=== PATIENT | male | born 1975 | race African-American/Black ===

== ENCOUNTER 2020-03-04 17:24 | Observation (INO) ==
[2020-03-04] MEDS ORDERED: NITROGLYCERIN SL 0.4 MG/TAB TAB SL PRN ×2 (17:50→21:33)
[2020-03-04] MEDS ORDERED: ASPIRIN CHEW 324 MG PO STA (17:50)
[2020-03-04] MEDS ORDERED: SODIUM CHLORIDE 0.9% 1000ML 1,000 ML IV SCH (18:00)
--- NOTE | 2020-03-04 18:02 | Emergency Department Note ---
History of Present Illness General Chief Complaint: Chest Pain Stated Complaint: chest pain Time Seen by Provider: 03/04/20 17:33 History of Present Illness Provider Complaint: chest pain Time: 12:00 Duration: intermittent Onset: during exertion (washing dishes) Pain Location: substernal, left chest and right chest Pain Radiation: none Severity: mild Maximum Pain Intensity: 0 Current Pain Intensity: 2 Quality: + tightness Relieved By: + rest and + other (deep breaths and relaxing) Exacerbated By: + nothing Context: no recent illness, no recent surgery, no recent immobilization, no recent travel, no trauma/injury, no new medications and no history of DVT/PE Associated symptoms: + dyspnea and + palpitations; no nausea, no vomiting, no diaphoresis, no syncope, no fever, no cough and no leg swelling Treatments prior to arrival: none Home Medications Medication Instructions Recorded Confirmed Type ascorbic acid (vitamin C) [Vitamin 1,000 mg PO DAILY 03/04/20 03/04/20 History C] lactobacillus combination no.4 0 mmu cells PO DAILY 03/04/20 03/04/20 History [Probiotic] Allergies Allergy/AdvReac Type Severity Reaction Status Date / Time No Known Allergies Allergy Verified 03/04/20 18:37 Past Med/Surg History Medical History (Updated 03/04/20 @ 20:57 by Kevin Jimenez) HLD (hyperlipidemia) borderline HTN (hypertension) hx of HTN off meds for last 5 yrs SABA (obstructive sleep apnea) Surgical History (Updated 03/04/20 @ 17:58 by Kevin Jimenez) No pertinent past surgical history Family History (Updated 03/04/20 @ 20:39 by Karla Ramesh DO) Father Myocardial infarction At age 35 and again at age 38. Possibly related to drug use Other Diabetes Dyslipidemia Hypertension Social History Smoking Status: Never smoker Feels Safe at Home: Yes Review of Systems A total of 10 systems reviewed and were otherwise negative Physical Exam Vital Signs Vital Signs - 24 hr 03/04/20 17:26 03/04/20 18:16 03/04/20 19:21 Temperature 36.8 C Temperature Source Temporal Artery Scan Pulse Rate 76 Pulse Rate [Apical] 58 L Pulse Rhythm [Apical] Regular Pulse Strength [Apical] Normal Respiratory Rate 20 18 Respiratory Effort / Characteristics Non-Labored Spontaneous Respiratory Depth Normal Respiratory Pattern Regular Blood Pressure 170/90 H Blood Pressure [Right Arm] 158/86 H Blood Pressure Mean 116 Blood Pressure Mean [Right Arm] 110 Blood Pressure Position [Right Arm] Sitting Pulse Oximetry 99 99 99 Oxygen Delivery Method Room Air Room Air Room Air Sepsis Recent Fever Within 48 Hours No Sepsis New/Unexplained Change in Mental Status N/A Sepsis Action Taken by Nursing No Action Required Physical Exam GENERAL: He is oriented to person, place, and time. He appears well-developed and well-nourished. He does not appear distressed. HENT: Exam performed. - Head: Normocephalic and atraumatic. - Right Ear: External ear normal. No mastoid tenderness. - Left Ear: External ear normal. No mastoid tenderness. - Mouth/Throat: The oropharynx is clear and moist. No trismus in the jaw. No dental abscesses or uvula swelling. No oropharyngeal exudate or tonsillar abscesses. EYES: Conjunctivae and EOM are normal. Pupils are equal, round, and reactive to light. Right eye exhibits no discharge. Left eye exhibits no discharge. No scleral icterus. NECK: Normal range of motion. Neck supple. No JVD present. No spinous process tenderness present. No carotid bruit present. No rigidity. No tracheal deviation and normal range of motion present. No Brudzinski's sign and no Kernig's sign noted. CV: Normal rate, regular rhythm, heart murmur present and intact distal pulses. There is no peripheral edema. Palpable radial pulses bue. PULM/CHEST: Effort normal and breath sounds normal. No respiratory distress. No stridor. He has no wheezes. He has no rales. - Chest Wall: He exhibits no tenderness. ABD: The abdomen is soft. Bowel sounds are normal. He has no distension. No mass is present. There is no tenderness. There is no rebound, no guarding, no Hogan's sign and no tenderness at McBurney's point. Rovsig negative. MUSC/SKEL: Normal range of motion. There is no peripheral edema, tenderness or deformity. LYMPH: No cervical adenopathy. NEURO: He is alert and oriented to person, place, and time. He has normal st rength. No cranial nerve deficit or sensory deficit. Coordination and gait normal. GCS eye subscore is 4. GCS verbal subscore is 5. GCS motor subscore is 6. Cerebellar tests wnl. SKIN: Skin is warm and dry. He is not diaphoretic. PSYCH: He has a normal mood and affect. Behavior is normal. Judgment and thought content normal. Course Course 1732: The patient was evaluated in room A10. A complete history and physical exam was performed. 1943: Vital signs stable. Labs and imaging within normal limits. Given the patient's EKG findings of T wave inversions in leads II, III and aVF and that the patient is -[place], strong family history of heart disease, borderline hyperlipidemia, and history of hypertension, the patient will be admitted for chest pain rule out ACS. Dr. Ramesh [facility] hospitalist was notified and will evaluate the patient. Administered Medications Nitroglycerin (Nitroglycerin Sl 0.4 Mg/Tab Tab) 0.4 mg SL UD PRN PRN Reason: Chest Pain Stop: 04/03/20 17:49 Last Admin: 03/04/20 17:55 Dose: 0.4 mg Documented by: [id number] Discontinued Medications Aspirin (Aspirin Chew 324 Mg) 324 mg PO NOW STA Stop: 03/04/20 17:51 Last Admin: 03/04/20 17:56 Dose: 324 mg Documented by: [id number] Sodium Chloride (Nss 1000ml) 1,000 mls @ 999 mls/hr IV .Q1H1M FABRICE Stop: 03/04/20 19:00 Last Infusion: 03/04/20 19:11 Dose: 0 mls/hr Documented by: [id number] Admin: 03/04/20 18:10 Dose: 999 mls/hr Documented by: [id number] Medical Decision Making Laboratory Data Result diagrams: 03/04/20 18:11 03/04/20 18:11 Labs: Lab Results 03/04/20 03/04/20 03/04/20 Range/Units 18:11 18:11 18:11 WBC 3.15 L (4.8-10.8) K/uL RBC 5.19 (4.7-6.1) M/uL Hgb 15.5 (14.0-18.0) g/dL Hct 44.2 (42-52) % MCV 85.2 (80-100) fL MCH 29.9 (25-34) pg MCHC 35.1 (32-36) g/dL RDW Std Deviation 37.9 (36.4-46.3) fL RDW Coeff of Gisele 12.1 (11.5-14.5) % Plt Count 199 (130-400) K/uL MPV 10.6 H (7.4-10.4) fL Immature Gran % (Auto) 0.0 % Neut % (Auto) 51.5 % Lymph % (Auto) 34.9 % [place] % (Auto) 10.8 % Eos % (Auto) 2.2 % Baso % (Auto) 0.6 % Neut # (Auto) 1.62 (1.4-6.5) K/uL Lymph # (Auto) 1.10 L (1.2-3.4) K/uL [place] # (Auto) 0.34 (0.11-0.59) K/uL Eos # (Auto) 0.07 (0-0.5) K/uL Baso # (Auto) 0.02 (0-0.2) K/uL Immature Gran # (Auto) 0.00 (0.00-0.02) K/uL PT 11.2 (9.0-12.0) Seconds INR 1.1 (0.9-1.1) APTT 26.3 (21.0-31.0) Seconds PTT Ratio 0.9 D-Dimer < 190 (0-500) ug/L FEU Sodium 138 (136-145) mmol/L Potassium 3.7 (3.5-5.1) mmol/L Chloride 105 (98-107) mmol/L Carbon Dioxide 29 (21-32) mmol/L Anion Gap 4.0 (3-11) BUN 17 (7-18) mg/dl Creatinine 1.39 (0.6-1.4) mg/dl Est Cr Clr Drug Dosing 85.9 ml/min Est GFR ( Amer) 70.4 Est GFR (Non-Af Amer) 60.8 BUN/Creatinine Ratio 12.6 (10-20) Glucose 107 H (70-99) mg/dl Calcium 9.5 (8.5-10.1) mg/dl Troponin I < 0.015 (0-0.045) ng/ml Lipase 133 (73-393) U/L SARS-CoV-2 Ag (Rapid) (Negative) 03/04/20 Range/Units Unknown WBC (4.8-10.8) K/uL RBC (4.7-6.1) M/uL Hgb (14.0-18.0) g/dL Hct (42-52) % MCV (80-100) fL MCH (25-34) pg MCHC (32-36) g/dL RDW Std Deviation (36.4-46.3) fL RDW Coeff of Gisele (11.5-14.5) % Plt Count (130-400) K/uL MPV (7.4-10.4) fL Immature Gran % (Auto) % Neut % (Auto) % Lymph % (Auto) % [place] % (Auto) % Eos % (Auto) % Baso % (Auto) % Neut # (Auto) (1.4-6.5) K/uL Lymph # (Auto) (1.2-3.4) K/uL [place] # (Auto) (0.11-0.59) K/uL Eos # (Auto) (0-0.5) K/uL Baso # (Auto) (0-0.2) K/uL Immature Gran # (Auto) (0.00-0.02) K/uL PT (9.0-12.0) Seconds INR (0.9-1.1) APTT (21.0-31.0) Seconds PTT Ratio D-Dimer (0-500) ug/L FEU Sodium (136-145) mmol/L Potassium (3.5-5.1) mmol/L Chloride (98-107) mmol/L Carbon Dioxide (21-32) mmol/L Anion Gap (3-11) BUN (7-18) mg/dl Creatinine (0.6-1.4) mg/dl Est Cr Clr Drug Dosing ml/min Est GFR ( Amer) Est GFR (Non-Af Amer) BUN/Creatinine Ratio (10-20) Glucose (70-99) mg/dl Calcium (8.5-10.1) mg/dl Troponin I (0-0.045) ng/ml Lipase (73-393) U/L SARS-CoV-2 Ag (Rapid) Negative (Negative) Imaging Data Chest x-ray: Radiologist's impression: XR chest 2V PA/lateral HISTORY: Atypical Chest Pain COMPARISON: None. FINDINGS: The lungs are clear. Cardiac silhouette is normal in size. No pleural effusions. No pneumothorax. IMPRESSION: No acute process. ACT 112: Negative or not required by law. Electronically signed by: Evan Goff M.D. 03/04/2020 7:35 PM Dictated: 03/04/201928 Transcribed: 03/04/201928 ECG Data Indication: chest pain Rate (beats per minute): 58 Rhythm: normal sinus Findings: + T-wave inversion (Leads II, III and aVF); no ST depression, no ST elevation and no prolonged QT Additional Comments: MN QRS and QTc intervals within normal limits MDM Narrative Vital signs stable. Labs and imaging within normal limits. Given the patien t's EKG findings of T wave inversions in leads II, III and aVF and that the patient is -[place], strong family history of heart disease, borderline hyperlipidemia, and history of hypertension, the patient will be admitted for chest pain rule out ACS. Dr. Gadiel Laguna hospitalist was notified and will evaluate the patient. Impression & Plan Chest pain Discharge Plan Visit Data Chief Complaint: Chest Pain Stated Complaint: chest pain ED Provider: Kevin Jimenez Discharge Problem: Chest pain Patient Disposition: Being Evaluated by Hospitalist Forms Stand Alone Forms: [facility] Prescriptions Prescriptions: No Action ascorbic acid (vitamin C) [Vitamin C] 1,000 mg Tablet 1,000 mg PO DAILY RF: 0 Probiotic 3 billion cell Capsule 0 mmu cells PO DAILY RF: 0 Referrals Referrals: PCP,NO [Primary Care Provider] - Discharge Problem: Chest pain Qualifiers: Chest pain type: unspecified Qualified Code(s): R07.9 - Chest pain, unspecified
[2020-03-04 18:20] LABS: Basophils # (auto) 0.02 K/uL (0-0.2); Basophils % (auto) 0.6 %; Eosinophils # (auto) 0.07 K/uL (0-0.5); Eosinophils % (auto) 2.2 %; Hematocrit (blood only) 44.2 % (42-52); Hemoglobin 15.5 g/dL (14.0-18.0); Lymphocytes % (auto) 34.9 %; Mean Corpuscular Hemoglobin 29.9 pg (25-34); Mean Corpuscular Hgb Conc 35.1 g/dL (32-36); Mean Corpuscular Volume 85.2 fL (80-100); Mean Platelet Volume 10.6 fL (7.4-10.4); Monocytes # (auto) 0.34 K/uL (0.11-0.59); Monocytes % (auto) 10.8 %; Neutrophils # (auto) 1.62 K/uL (1.4-6.5); Neutrophils % (auto) 51.5 %; Platelet Count 199 K/uL (130-400); RDW Coefficient of Variation 12.1 % (11.5-14.5); RDW Standard Deviation 37.9 fL (36.4-46.3); Red Blood Count 5.19 M/uL (4.7-6.1); White Blood Count 3.15 K/uL (4.8-10.8)
[2020-03-04 18:30] LABS: D Dimer < 190 ug/L FEU (0-500); INR 1.1 (0.9-1.1); Partial Thromboplastin Ratio 0.9; Partial Thromboplastin Time 26.3 Seconds (21.0-31.0); Prothrombin Time 11.2 Seconds (9.0-12.0)
[2020-03-04 18:37] LABS: BUN Creatinine Ratio 12.6 (10-20); Blood Urea Nitrogen 17 mg/dl (7-18); Calcium 9.5 mg/dl (8.5-10.1); Carbon Dioxide 29 mmol/L (21-32); Chloride 105 mmol/L (98-107); Creatinine Clr Calc Pharmacy 85.9 ml/min; Est GFR (African American) 70.4; Est GFR (Non-African American) 60.8; Glucose 107 mg/dl (70-99); Lipase 133 U/L (73-393); Potassium 3.7 mmol/L (3.5-5.1); Sodium 138 mmol/L (136-145)
[2020-03-04 18:41] LABS: Troponin I < 0.015 ng/ml (0-0.045)
--- NOTE | 2020-03-04 19:37 | XRay Report ---
XR chest 2V PA/lateral HISTORY: Atypical Chest Pain COMPARISON: None. FINDINGS: The lungs are clear. Cardiac silhouette is normal in size. No pleural effusions. No pneumot horax. IMPRESSION: No acute process. ACT 112: Negative or not required by law. Electronically signed by: Evan Goff M.D. 03/04/2020 7:35 PM
--- NOTE | 2020-03-04 20:12 | History & Physical Report ---
Date of Service March 04, 2020 Assessment & Plan (1) Palpitations: 44yo AA male with history of HTN, HLP, (early MIs in father possibly secondary to drug use - details unclear) presenting with 1 month of intermittent palpitations and occasional chest tightness. Patient afebrile, mildly hype rtensive. Troponin x 1 unremarkable. EKG with TWI present in leads II, III and aVF. RSR' in V1 with normal QRS. History of enlarged heart in the past which has been worked up - ?if this is athletic heart secondary to patient's physical conditioning. Patient denies exertional or post-exertional symptoms -Observation to medical with telemetry -Check Mg x 1, TSH -Check lipid panel and HgB AIC for risk stratification -Trend troponin q 8 hours x 3 -2D echo appreciated -Nitro as needed for chest pain -Cardiology consultation appreciated Present on Admission?: Yes (2) HLD (hyperlipidemia): Recently diagnosed in outpatient setting. Diet and exercise recommended -Check lipid panel Present on Admission?: Yes (3) HTN (hypertension): Patient hypertensive on arrival. Was on medication in the past but most recently managing his blood pressure with diet and exercise. He reports poor diet over the last few months as well as increase in his BP -Continue to monitor -Encourage proper diet and continued exercise Present on Admission?: Yes (4) SABA (obstructive sleep apnea): Chronic. Patient compliant with CPAP. His is to bring in his machine this evening -CPAP qHS F/E/N - Heplock. Electrolytes WNL, check Mg x 1 and replete if necessary, heart healthy diet as tolerated Ppx - Low risk for DVT. Encourage ambulation Code - Full per discussion with patient Dispo - Observation to medical with telemetry Present on Admission?: Yes History of Present Illness Chief Complaint: chest discomfort Primary Care Provider: NO PCP Mr. Dario Stokes is a 44yo AA male with history of hypertension, recently diagnosed hyperlipidemia and SABA on CPAP qHS presenting with chest discomfort. Patient reports that over the last month he has been experiencing episodic palpitations, muscle spasms in his chest and occasional chest tightness. This evening when he was doing the dishes he had some stronger palpitations with some chest tightness. He came to the ER for evaluation. Patient does not note an increased in frequency, duration or severity of his palpitations over the last month. He has noticed them more in the evenings when he lays down to go to sleep. 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 He is very active daily - runs, boxes, weight trains. He has never experienced exertional symptoms that have limited activity. He does not notice an increase in palpitations during or following exertion. Patient has been told since childhood that he has a "slightly enlarged heart". He has seen Cardiology several times in the past and has had workups for this. He has never been told to limit his activity. History of HTN - was previously on medications. Has been off for 4-5 years and managing his blood pressure well with diet and exercise. Reports his diet has been poor the last several months which has corresponded with an increase in his blood pressure. Recently diagnosed with hyperlipidemia by the team doctor. Currently not on medications. Diet and exercise encouraged at this time. ER Course: ASA 324mg po daily, Nitro 0.4mg SL, NSS x 1L Allergies Allergy/AdvReac Type Severity Reaction Status Date / Time No Known Allergies Allergy Verified 03/04/20 18:37 Home Medications Medication Instructions Recorded Confirmed Type ascorbic acid (vitamin C) [Vitamin 1,000 mg PO DAILY 03/04/20 03/04/20 History C] lactobacillus combination no.4 0 mmu cells PO DAILY 03/04/20 03/04/20 History [Probiotic] Past Med/Surg History Medical History (Updated 03/04/20 @ 20:49 by Karla Ramesh DO) HLD (hyperlipidemia) borderline HTN (hypertension) hx of HTN off meds for last 5 yrs SABA (obstructive sleep apnea) Surgical History (Updated 03/04/20 @ 17:58 by Kevin Jimenez) No pertinent past surgical history Family History (Updated 03/04/20 @ 20:39 by Karla Ramesh DO) Father Myocardial infarction At age 35 and again at age 38. Possibly related to drug use Other Diabetes Dyslipidemia Hypertension Social History Smoking Status: Never smoker Feels Safe at Home: Yes Review of Systems Review of Systems: All systems reviewed & are unremarkable except as noted in HPI & below diarrhea 2d ago now resolved Denies fever/chills/cough/SOB/dizziness/syncope Physical Exam Physical Exam: General: patient resting comfortably, NAD, non-toxic in appearance, AA&O x 4 Skin: warm, dry, intact, no rashes or lesions HEENT: NC/AT, PERRL, EOMI, anicteric sclera, conjunctiva without injection, external ear normal to inspection and nontender, nares patent, moist mucus m embranes, dentition intact, no oropharyngeal lesions, neck supple, trachea midline, no LAD, no thyromegaly, no JVD Heart: +S1/S2, regular, 2/6 CINTIA across precordium Lungs: equal air entry bilaterally, no rales/rhonchi/wheezes Abd: +BS, soft, NT/ND, no masses/organomegaly/ascites Ext: warm, 2+ pulses in UE/LE bilaterally, no clubbing/cyanosis or edema Neuro: nonfocal, patient AA&O x 4, speech intact, no facial droop, moving all extremities on command with equal strength 5/5 Results & Data Results & Data ([facility]) Vital Signs (Past 12 Hours) Vital Signs Temp Pulse Pulse Resp BP BP Pulse Ox 03/04/20 19:21 58 L 18 158/86 H 99 03/04/20 18:16 99 03/04/20 17:26 36.8 C 76 20 170/90 H 99 Laboratory Results Lab Results 03/04/20 03/04/20 03/04/20 Range/Units 18:11 18:11 18:11 WBC 3.15 L (4.8-10.8) K/uL RBC 5.19 (4.7-6.1) M/uL Hgb 15.5 (14.0-18.0) g/dL Hct 44.2 (42-52) % MCV 85.2 (80-100) fL MCH 29.9 (25-34) pg MCHC 35.1 (32-36) g/dL RDW Std Deviation 37.9 (36.4-46.3) fL RDW Coeff of Gisele 12.1 (11.5-14.5) % Plt Count 199 (130-400) K/uL MPV 10.6 H (7.4-10.4) fL Immature Gran % (Auto) 0.0 % Neut % (Auto) 51.5 % Lymph % (Auto) 34.9 % [place] % (Auto) 10.8 % Eos % (Auto) 2.2 % Baso % (Auto) 0.6 % Neut # (Auto) 1.62 (1.4-6.5) K/uL Lymph # (Auto) 1.10 L (1.2-3.4) K/uL [place] # (Auto) 0.34 (0.11-0.59) K/uL Eos # (Auto) 0.07 (0-0.5) K/uL Baso # (Auto) 0.02 (0-0.2) K/uL Immature Gran # (Auto) 0.00 (0.00-0.02) K/uL PT 11.2 (9.0-12.0) Seconds INR 1.1 (0.9-1.1) APTT 26.3 (21.0-31.0) Seconds PTT Ratio 0.9 D-Dimer < 190 (0-500) ug/L FEU Sodium 138 (136-145) mmol/L Potassium 3.7 (3.5-5.1) mmol/L Chloride 105 (98-107) mmol/L Carbon Dioxide 29 (21-32) mmol/L Anion Gap 4.0 (3-11) BUN 17 (7-18) mg/dl Creatinine 1.39 (0.6-1.4) mg/dl Est Cr Clr Drug Dosing 85.9 ml/min Est GFR ( Amer) 70.4 Est GFR (Non-Af Amer) 60.8 BUN/Creatinine Ratio 12.6 (10-20) Glucose 107 H (70-99) mg/dl Calcium 9.5 (8.5-10.1) mg/dl Troponin I < 0.015 (0-0.045) ng/ml Lipase 133 (73-393) U/L SARS-CoV-2 Ag (Rapid) (Negative) 03/04/20 Range/Units Unknown WBC (4.8-10.8) K/uL RBC (4.7-6.1) M/uL Hgb (14.0-18.0) g/dL Hct (42-52) % MCV (80-100) fL MCH (25-34) pg MCHC (32-36) g/dL RDW Std Deviation (36.4-46.3) fL RDW Coeff of Gisele (11.5-14.5) % Plt Count (130-400) K/uL MPV (7.4-10.4) fL Immature Gran % (Auto) % Neut % (Auto) % Lymph % (Auto) % [place] % (Auto) % Eos % (Auto) % Baso % (Auto) % Neut # (Auto) (1.4-6.5) K/uL Lymph # (Auto) (1.2-3.4) K/uL [place] # (Auto) (0.11-0.59) K/uL Eos # (Auto) (0-0.5) K/uL Baso # (Auto) (0-0.2) K/uL Immature Gran # (Auto) (0.00-0.02) K/uL PT (9.0-12.0) Seconds INR (0.9-1.1) APTT (21.0-31.0) Seconds PTT Ratio D-Dimer (0-500) ug/L FEU Sodium (136-145) mmol/L Potassium (3.5-5.1) mmol/L Chloride (98-107) mmol/L Carbon Dioxide (21-32) mmol/L Anion Gap (3-11) BUN (7-18) mg/dl Creatinine (0.6-1.4) mg/dl Est Cr Clr Drug Dosing ml/min Est GFR ( Amer) Est GFR (Non-Af Amer) BUN/Creatinine Ratio (10-20) Glucose (70-99) mg/dl Calcium (8.5-10.1) mg/dl Troponin I (0-0.045) ng/ml Lipase (73-393) U/L SARS-CoV-2 Ag (Rapid) Negative (Negative) Diagnostic Findings XR chest 2V PA/lateral HISTORY: Atypical Chest Pain COMPARISON: None. FINDINGS: The lungs are clear. Cardiac silhouette is normal in size. No pleural effusions. No pneumothorax. IMPRESSION: No acute process. ACT 112: Negative or not required by law. Electronically signed by: Evan Goff M.D. 03/04/2020 7:35 PM Dictated: 03/04/201928Transcribed: 03/04/201928 ECG Additional Comments: EKG with SB at 58 bpm, normal axis, BW=899, QRS=90, FXn=226, TWI present in leads II, III and aVF PG Care Time/CCT Total # of Minutes Spent Total Time Spent with Patient: Total time spent is greater than 50% in coordination of care (as documented) at patient's floor/unit and/or counseling patient: Coding Level of Care Code 20028 OBS Care - Level 3 Diagnoses Palpitations R00.2 HLD (hyperlipidemia) E78.5 Hyperlipidemia type: unspecified HTN (hypertension) I10 Hypertension type: essential hypertension SABA (obstructive sleep apnea) G47.33 (1) HLD (hyperlipidemia) Hyperlipidemia type: unspecified Qualified Code(s): E78.5 - Hyperlipidemia, unspecified (2) HTN (hypertension) Hypertension type: essential hypertension Qualified Code(s): I10 - Essential (primary) hypertension
[2020-03-04] MEDS ORDERED: ACETAMINOPHEN 325 MG TAB PO PRN (21:33)
[2020-03-04] MEDS ORDERED: ONDANSETRON INJ 2 MG/ML 2 ML VIAL IV PRN (21:33)
[2020-03-05 08:30] LABS: Alanine Aminotransferase 29 U/L (12-78); Albumin Level 3.3 gm/dl (3.4-5.0); Aspartate Aminotransferase 19 U/L (15-37); Blood Urea Nitrogen 14 mg/dl (7-18); Calcium 9.8 mg/dl (8.5-10.1); Carbon Dioxide 28 mmol/L (21-32); Chloride 106 mmol/L (98-107); Creatinine Clr Calc Pharmacy 96.3 ml/min; Est GFR (African American) 80.9; Est GFR (Non-African American) 69.8; Glucose 87 mg/dl (70-99); Potassium 3.8 mmol/L (3.5-5.1); Sodium 139 mmol/L (136-145)
[2020-03-05 08:35] LABS: Alkaline Phosphatase 65 U/L (45-117); Bilirubin,Total 0.8 mg/dl (0.2-1); Globulin 3.3 gm/dl (2.5-4.0); Total Protein 6.6 gm/dl (6.4-8.2); Troponin I < 0.015 ng/ml (0-0.045)
[2020-03-05 08:56] LABS: Thyroid Stimulating Hormone 1.11 uIu/ml (0.300-4.500)
--- NOTE | 2020-03-05 10:03 | Cardiology Consultation ---
Date of Consultation March 05, 2020 Assessment & Plan (1) Chest pain: His chest pain is very atypical for coronary artery disease and his troponins are negative therefore I do not think this represents myocardial ischemia. He does have left ventricular hypertrophy and an abnormal electroca rdiogram with T wave inversion inferiorly, I suspect this is longstanding and he should be on antihypertensives but I do not think we should pursue this further with stress testing. If he develops exertional symptoms we can consider it. (2) Palpitations: He has occasional palpitations, including a somewhat increased heart rate at home, but it was not terribly elevated and perhaps it was just anxiety. If this becomes problematic we should try to record it, he has not had any significant arrhythmia here in the hospital. (3) HTN (hypertension): He does have hypertension and he has significant LVH on his echocardiogram. He should be treated aggressively for blood pressure control both for his LVH and for his cardiac risk. (4) Cardiovascular event risk: I did perform a cardiovascular event risk calculation using the ACC/AHA calculation and his 10-year risk is 5.6%. He should have better blood pressure control however there is no indication for statin therapy or aspirin with this level of risk. History of Present Illness Reason for Consultation: Palpitations, chest discomfort Attending Physician: Michael Gaona MD History of Present Illness This is a 44-year-old male with a history of hypertension and hyperlipidemia (currently not on treatment) as well as a family history of heart disease who presents with a month of chest tightness and palpitations. He did have T wave abnormalities on his initial electrocardiogram with a negative troponin. Apparently he has been evaluated in the past for an "enlarged heart", but no specific treatment recommended. He tells me that he recently had a cholesterol done which was elevated, however he has not been following a healthy diet and he wanted to modify his diet and he is scheduled to have a repeat study done sometime in the near future. His lipid profile here is abnormal with an elevated total cholesterol however his HDL cholesterol is very good so his non-HDL cholesterol is not terribly elevated. He describes to me an atypical type chest discomfort which occurred on the day of presentation, it was a fleeting precordial discomfort in the right and left precordium and felt like a muscle pain to him, apparently was momentary but came and went periodically throughout the day. It was not exertional. He also noted that his heart rate was somewhat elevated, around 100 bpm, which is unusual for him. He therefore came into the emergency room. He has had no further chest discomfort since admission and has had no awareness of an elevated heart rate. Evaluation here was notable for hypertension and for troponins of less than 0.015 on March 04, 2020 at 1811 as well as March 05, 2020 at 0021 and from March 05, 2020 at 0737. His presenting electrocardiogram shows sinus bradycardia with inferior T wave inversion, no prior electrocardiograms are available. A repeat electrocardiogram this morning shows similar findings. An echocardiogram this morning shows left ventricular hypertrophy but preserved left ventricular wall motion. Allergies Allergy/AdvReac Type Severity Reaction Status Date / Time No Known Allergies Allergy Verified 03/04/20 18:37 Home Medications Medication Instructions Recorded Confirmed Type ascorbic acid (vitamin C) [Vitamin 1,000 mg PO DAILY 03/04/20 03/04/20 History C] lactobacillus combination no.4 0 mmu cells PO DAILY 03/04/20 03/04/20 History [Probiotic] Patient History Medical History HLD (hyperlipidemia) borderline HTN (hypertension) hx of HTN off meds for last 5 yrs SABA (obstructive sleep apnea) Surgical History No pertinent past surgical history Family History Father Myocardial infarction At age 35 and again at age 38. Possibly related to drug use Other Diabetes Dyslipidemia Hypertension Social History Smoking Status: Never smoker Hx Alcohol Use: Yes Alcohol type: wine and hard liquor Hx Substance Use: No Preferred Language: Armenian Communication Ability: Effective Office System Analyst Required: No Beliefs That Will Affect Care: None Current Living Situation: Spouse Current Living Situation Comment: Children and MIL Feels Safe at Home: Yes Assistive Devices: None Review of Systems Review of Systems: All systems reviewed & are unremarkable except as noted in HPI & below Physical Exam Physical Exam: Constitutional: Alert, cooperative and in no distress. HEENT: Unremarkable Neck: No jugular venous distention, carotid pulses are normal and equal bilaterally without bruits. Pulmonary: Clear to auscultation bilaterally. Cardiac: Regular rhythm with no murmur, gallop or rub. Abdomen: Soft, nontender with normal bowel sounds. Extremities: No edema. Distal pulses intact. Neurologic: No focal findings. Gait is steady. Skin: No rash, ecchymoses or petechiae. Results & Data ([facility]) Vital Signs (Past 12 Hours) Vital Signs Temp Pulse Pulse Resp BP Pulse Ox 03/05/20 08:24 36.7 C 55 L 20 166/75 H 99 03/05/20 07:14 46 L 03/05/20 04:31 36.7 C 56 L 20 121/66 98 03/05/20 00:07 37.3 C 64 18 146/77 H 99 03/04/20 23:16 72 Laboratory Results Cardiac Enzymes 03/04/20 03/05/20 03/05/20 Range/Units 18:11 00:21 07:37 AST 19 (15-37) U/L Troponin I < 0.015 < 0.015 < 0.015 (0-0.045) ng/ml Coagulation 03/04/20 Range/Units 18:11 PT 11.2 (9.0-12.0) Seconds APTT 26.3 (21.0-31.0) Seconds Lipids 03/05/20 Range/Units 07:37 Triglycerides 67 (0-150) mg/dl Cholesterol 225 H (0-200) mg/dl HDL Cholesterol 77 mg/dl Cholesterol/HDL Ratio 3 CBC 03/04/20 Range/Units 18:11 WBC 3.15 L (4.8-10.8) K/uL RBC 5.19 (4.7-6.1) M/uL Hgb 15.5 (14.0-18.0) g/dL Hct 44.2 (42-52) % Plt Count 199 (130-400) K/uL Neut # (Auto) 1.62 (1.4-6.5) K/uL Lymph # (Auto) 1.10 L (1.2-3.4) K/uL Cole # (Auto) 0.34 (0.11-0.59) K/uL Eos # (Auto) 0.07 (0-0.5) K/uL Baso # (Auto) 0.02 (0-0.2) K/uL Comprehensive Metabolic Panel 03/04/20 03/05/20 Range/Units 18:11 07:37 Sodium 138 139 (136-145) mmol/L Potassium 3.7 3.8 (3.5-5.1) mmol/L Chloride 105 106 (98-107) mmol/L Carbon Dioxide 29 28 (21-32) mmol/L BUN 17 14 (7-18) mg/dl Creatinine 1.39 1.24 (0.6-1.4) mg/dl Glucose 107 H 87 (70-99) mg/dl Calcium 9.5 9.8 (8.5-10.1) mg/dl AST 19 (15-37) U/L ALT 29 (12-78) U/L Alkaline Phosphatase 65 (45-117) U/L Total Protein 6.6 (6.4-8.2) gm/dl Albumin 3.3 L (3.4-5.0) gm/dl Intake and Output 03/04/20 03/05/20 03/05/20 22:59 06:59 14:59 Intake Total 1000 / 1140 140 / 1140 Balance 1000 / 1140 140 / 1140 Intake: IV 1000 / 1000 Nss 1000ML 1,000 ml @ 999 mls/ 1000 / 1000 hr IV .Q1H1M FABRICE Rx#:[id number] Oral 140 / 140 Other: Weight 106.3 kg PG Care Time/CCT Total # of Minutes Spent Total Time Spent with Patient: Total time spent is greater than 50% in coordination of care (as documented) at patient's floor/unit and/or counseling patient: Coding Level of Care Code 85566 Inpt Consult Level 4 Diagnoses Chest pain R07.9 Chest pain type: unspecified Palpitations R00.2 HTN (hypertension) I10 Hypertension type: essential hypertension Cardiovascular event risk Z91.89 (1) Chest pain Chest pain type: unspecified Qualified Code(s): R07.9 - Chest pain, unspecified (2) HTN (hypertension) Hypertension type: essential hypertension Qualified Code(s): I10 - Essential (primary) hypertension
--- NOTE | 2020-03-05 10:04 | XCELERA ---
[id number] \\[id number]
[2020-03-05 10:05] LABS: Estimated Average Glucose 114 mg/dl; Hemoglobin A1C 5.6 % (4.5-5.6)
[2020-03-05] MEDS ORDERED: lisinopril 5 MG TAB PO ONE (10:19)
[2020-03-05] MEDS ORDERED: hydroCHLOROthiazide 25 MG TAB PO SCH (10:30)
[2020-03-05 10:31] LABS: Basophils # (auto) 0.02 K/uL (0-0.2); Basophils % (auto) 0.4 %; Eosinophils # (auto) 0.09 K/uL (0-0.5); Eosinophils % (auto) 1.8 %; Hematocrit (blood only) 43.7 % (42-52); Hemoglobin 14.7 g/dL (14.0-18.0); Immature Granulocytes # (auto) 0.01 K/uL (0.00-0.02); Immature Granulocytes % (auto) 0.2 %; Lymphocytes # (auto) 1.49 K/uL (1.2-3.4); Lymphocytes % (auto) 30.2 %; Mean Corpuscular Hemoglobin 29.1 pg (25-34); Mean Corpuscular Hgb Conc 33.6 g/dL (32-36); Mean Corpuscular Volume 86.4 fL (80-100); Mean Platelet Volume 11.1 fL (7.4-10.4); Monocytes # (auto) 0.64 K/uL (0.11-0.59); Neutrophils # (auto) 2.68 K/uL (1.4-6.5); Neutrophils % (auto) 54.4 %; Platelet Count 187 K/uL (130-400); RDW Coefficient of Variation 12.4 % (11.5-14.5); RDW Standard Deviation 39.3 fL (36.4-46.3); Red Blood Count 5.06 M/uL (4.7-6.1); White Blood Count 4.93 K/uL (4.8-10.8)
[2020-03-05] MEDS ORDERED: METOPROLOL SUCC 50MG EXT REL TAB PO STA ×2 (10:47→12:28)
[2020-03-05] MEDS ORDERED: hydroCHLOROthiazide 25 MG TAB PO STA (10:47)
--- NOTE | 2020-03-05 10:47 | Discharge Summary ---
Date of Service March 05, 2020 Admission HPI Per Admitting Provider Mr. Dario Stokes is a 44yo AA male with history of hypertension, recently diagnosed hyperlipidemia and SABA on CPAP qHS presenting with chest discomfort. Patient reports that over the last month he has been experiencing episodic palpitations, muscle spasms in his chest and occasional chest tightness. This evening when he was doing the dishes he had some stronger palpitations with some chest tightness. He came to the ER for evaluation. Patient does not note an increased in frequency, duration or severity of his palpitations over the last month. He has noticed them more in the evenings when he lays down to go to sleep. 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 He is very active daily - runs, boxes, weight trains. He has never experienced exertional symptoms that have limited activity. He does not notice an increase in palpitations during or following exertion. Patient has been told since childhood that he has a "slightly enlarged heart". He has seen Cardiology several times in the past and has had workups for this. He has never been told to limit his activity. History of HTN - was previously on medications. Has been off for 4-5 years and managing his blood pressure well with diet and exercise. Reports his diet has been poor the last several months which has corresponded with an increase in his blood pressure. Recently diagnosed with hyperlipidemia by the team doctor. Currently not on medications. Diet and exercise encouraged at this time. ER Course: ASA 324mg po daily, Nitro 0.4mg SL, NSS x 1L Admission Exam Per Admitting Provider Physical Exam: General: patient resting comfortably, NAD, non-toxic in appearance, AA&O x 4 Skin: warm, dry, intact, no rashes or lesions HEENT: NC/AT, PERRL, EOMI, anicteric sclera, conjunctiva without injection, external ear normal to inspection and nontender, nares patent, moist mucus membranes, dentition intact, no oropharyngeal lesions, neck supple, trachea midline, no LAD, no thyromegaly, no JVD Heart: +S1/S2, regular, 2/6 CINTIA across precordium Lungs: equal air entry bilaterally, no rales/rhonchi/wheezes Abd: +BS, soft, NT/ND, no masses/organomegaly/ascites Ext: warm, 2+ pulses in UE/LE bilaterally, no clubbing/cyanosis or edema Neuro: nonfocal, patient AA&O x 4, speech intact, no facial droop, moving all extremities on command with equal strength 5/5 Principal Diagnosis Hypertension, Palpitations Discharge Exam Constitutional WD/WN, vitals as above comfortable; no acute distress Eyes + anicteric sclerae and PERRL ENMT external ear and nose normal, oropharynx normal Neck trachea midline, no thyromegaly Respiratory normal respiratory effort, lungs clear to auscultation Cardiovascular RRR, no murmur, no edema Gastrointestinal (Abdomen) normal bowel sounds, soft, nontender, no hepatosplenomegaly Musculoskeletal no cyanosis or clubbing, extremities motor strength 5/5 Skin no rashes, warm and dry Neurologic PERRL, EOMI, accommodation nl, no face palsy, no dysarthria Psychiatric A+Ox3, euthymic affect Genitourinary no fermin Lymphatic no cervical or axillary lymphadenopathy Discharge Data Allergies Allergy/AdvReac Type Severity Reaction Status Date / Time No Known Allergies Allergy Verified 03/04/20 18:37 Consultations 03/04/20 19:16 ED Decision to Admit Stat 03/04/20 21:33 Consult Cardiology Routine Ordered Studies CXR ECHO Hospital Course (1) Palpitations: 44yo AA male with history of HTN, HLP, (early MIs in father possibly secondary to drug use - details unclear) presenting with 1 month of intermittent palpitations and occasional chest tightness. Patient afebrile, mildly hypertensive. Troponin x 1 unremarkable. EKG with TWI present in leads II, III and aVF. RSR' in V1 with normal QRS. History of enlarged heart in the past which has been worked up - ?if this is athletic heart secondary to patient's physical conditioning. Patient denies exertional or post-exertional symptoms. Nitro prn -- denied pain No further palpitations reported -- patient states they are not daily, occur in the evenings usually, but only developed tightness the day prior which prompted him to come in. CXR without acute process Mag, TSH wnl D-dimer NEGATIVE Troponin negative x 4 ECHO with normal LV systolic function and size, EF 60-65%. LV wall motion normal. Mild concentric LVH. Right ventricle mildly dilated. Thickened anterior mitral leaflet without prolapse. Mild MR, trace TR. RVSP normal Cardiology consulted -- no obv arrhythmia on monitor but rec treating HTN with HCTZ and Metoprolol succinate 50mg daily --> started while inpatient with impr ovement of BP to 159/82. Diastolic BPs acceptable (previously in the 90s on admission). Can follow up with PCP for further titration of antihypertensive agents if BPs remain elevated despite medications and improved diet (poor diet reported during pandemic) Per cardiology, no indication for stress test at this time as prior worked up. Would be willing to see outpt for further issues with palpitations if they continue in the future. A1c - 5.6 Lipid panel with elevated cholesterol at 225 (LDL 135, HDL 77)-- sent rx for atorvastatin 10mg daily and to follow up with PCP Dr. Forrest To follow up with cardiology for event monitor if symptoms recur with adequately controlled BP (2) HLD (hyperlipidemia): Recently diagnosed in outpatient setting. Diet and exercise recommended Sent rx for atorvastatin 10mg daily for risk with father [place] 35, 38yo although per patient could have been related to drug use for his father (3) HTN (hypertension): Patient hypertensive on arrival. Was on medication in the past but most recently managing his blood pressure with diet and exercise. 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 Patient compliant with CPAP -- to have follow up sleep study in upcoming weeks outpatient Follow up with PCP recommended following as above Discharged home. Total Time Total Time Spent Total Time Spent (In Minutes): 60 Total Time Includes: Examination of the Patient, Medication Reconciliation and Communication With Other Providers Discharge Plan Discharge Items Patient Disposition: Home - Self-Care Reason For Visit: CHEST PALPITATIONS Discharge Diagnosis: Palpitations, HTN Goals: You have been hospitalized for an acute medical problem. During your stay at [facility], we have made an effort to correct the problem that brought you to the hospital while keeping you as comfortable as possible. Medications were used to bring your condition under control and your discharge instructions will include directions for any medications you should take after leaving the hospital. Please make sure you see your Primary Care Provider as part of your follow up plan. Activity: Resume your previous activity Non-emergency contact: Primary Care Provider Call non-emergency contact if: you have any medication questions, your symptoms worsen and your pain is not controlled Follow-up/Referrals: Sivakumar Forrest MD [Surgeon] - (1-2 weeks f/u PCP) Johnnie Fuentes DO [Physician] - (2 weeks -- palpitations, HTN, bradycardia) PCP,NO [Primary Care Provider] - Diet: Heart Healthy Addtl Attending Provider Instructions: You have been hospitalized for palpitations and work-up for heart attack has been negative. Troponins (cardiac enzymes) were trended and have all been negative. Your thyroid function was checked and that was also normal. COVID-19 testing was NEGATIVE. D-dimer was unremarkable, indicating no evidence for pulmonary embolism either. Imaging of your heart shows some thickening, likely from long standing elevated blood pressure but did not indicate any wall motion abnormalities which would indicate damage to a particular area. You were evaluated by cardiology and monitored on telemetry for any arrhythmias and that has been unrevealing. You were started on metoprolol succinate 50mg by mouth daily in addition to hydrochlorothiazide 12.5mg by mouth daily to obtain better blood pressure control and you should follow up with your primary care provider about your follow up sleep study and may be able to titrate these medications down if blood pressure improvements are made with adjustments to your CPAP and improved diet. You should watch your sodium intake/processed foods/fast food to further help with your blood pressure. You should follow up with your PCP in the next 1-2 weeks to monitor your progress. Your cholesterol was elevated, as discussed, and you should continue diet/exercise and should have follow-up. If remains elevated you should consider starting a lipid lowering agent like Lipitor. You may also wish to follow up with Dr. Fuentes ([facility]) in 1 month for any further work-up if controlling your blood pressure does not ensure resolution of your symptoms or for an event monitor, as discussed. Please return to the emergency department with any chest pain, increased palpitations, shortness of breath, or for any other symptoms that are concerning for you. It has been a pleasure being a part of the medical team providing for you while you have been in the hospital. Take care! Pending Studies at Discharge: No Stand-Alone Forms: My [facility] Medications and DC Order Prescriptions: New metoprolol succinate 50 mg tablet extended release 24 hr 50 mg PO DAILY Qty: 30 RF: 0 hydrochlorothiazide 12.5 mg capsule 12.5 mg PO DAILY Qty: 30 RF: 0 Continued ascorbic acid (vitamin C) [Vitamin C] 1,000 mg Tablet 1,000 mg PO DAILY RF: 0 Probiotic 3 billion cell Capsule 0 mmu cells PO DAILY RF: 0 Discharge Orders: Discharge Order (Routine); Ordered 03/05/20 Ordered By: Verito Ngo Admission Data Admit Date/Time: 03/04/20 20:11 Attending Provider: Michael Gaona Admit Provider: Karla Ramesh Primary Care Provider: PCP,NO Other Providers: Karla Ramesh ; Jose Montoya Coding Level of Care Code 20647 OBS Care - Discharge Diagnoses Palpitations R00.2 HLD (hyperlipidemia) E78.5 Hyperlipidemia type: unspecified HTN (hypertension) I10 Hypertension type: essential hypertension SABA (obstructive sleep apnea) G47.33
[2020-03-05] MEDS ORDERED: METOPROLOL TARTRATE 25 MG TAB PO SCH (11:00)
[2020-03-05 14:53] VITALS: TEMP 98.5; O2SAT 95
[2020-03-05 16:08] LABS: BUN Creatinine Ratio 12.2 (10-20); Calcium 9.5 mg/dl (8.5-10.1); Creatinine Clr Calc Pharmacy 88.4 ml/min; Potassium 3.9 mmol/L (3.5-5.1)
[2020-03-05 16:26] VITALS: BP 162/81; PULSE 91
--- NOTE | 2020-03-06 20:18 | Electrocardiogram Report ---
Test Reason : Blood Pressure : / mmHG Vent. Rate : 058 BPM Atrial Rate : 058 BPM P-R Int : 196 ms QRS Dur : 090 ms QT Int : 416 ms P-R-T Axes : 060 002 -37 degrees QTc Int : 408 ms Sinus bradycardia T wave abnormality, consider inferior ischemia Abnormal ECG No previous ECGs available Confirmed by Sonido Louis ([id number]) on 03/06/2020 8:17:55 PM Referred By: REFERRED SELF Confirmed By:Sonido Louis
--- NOTE | 2020-03-06 21:05 | Electrocardiogram Report ---
Test Reason : Blood Pressure : / mmHG Vent. Rate : 052 BPM Atrial Rate : 052 BPM P-R Int : 194 ms QRS Dur : 092 ms QT Int : 440 ms P-R-T Axes : 071 033 -46 degrees QTc Int : 409 ms Sinus bradycardia Abnormal ECG When compared with ECG of 04-MAR-2020 17:34, (unconfirmed) No significant change was found Confirmed by Sonido Louis ([id number]) on 03/06/2020 9:05:03 PM Referred By: REFERRED SELF Confirmed By:Sonido Louis
== END 2020-03-05 17:00 | disposition home or self-care (01) ==
LOC: ED 17:24 → 2W 17:24 → SUATTDRO 20:11 → 2W 21:12